=== PATIENT | female | born 1965 | race Hispanic/Latino ===

== ENCOUNTER 2020-02-09 14:03 | Inpatient (IN) | payer OTHER ==
[~2020-02-09 14:03] MED LIST: Iopamidol-370 76% 500 ML 1 ML ONE
[2020-02-09 14:52] LABS: #Lymphocytes 1.8 thou/uL (1.20-3.40); #Monocytes 0.4 thou/uL (0.11-0.59); #Neutrophils 3.5 thou/uL (1.40-6.50); %Basophils 0.8 % (0.0-1.0); %Eosinophils 0.4 % (0.0-10.0); %Lymphocytes 31.9 % (21.0-51.0); %Neutrophils 59.9 % (42.0-75.0); Hemoglobin 13.3 g/dL (12.0-16.0); Mean Corpuscular HGB CONC 33.3 g/dL (32.0-36.0); Mean Corpuscular Hemoglobin 30.9 pg (27.0-31.0); Mean Corpuscular Volume 92.6 fL (78.0-98.0); Mean Platelet Volume 7.4 fL (7.4-10.4); Platelet Count 221 thou/uL (130-400); RBC Distribution Width 13.9 % (11.5-14.5); Red Blood Cell (RBC) Count 4.32 mill/uL (4.20-5.40); White Blood Cell (WBC) Count 5.8 thou/uL (4.8-10.8)
--- NOTE | 2020-02-09 14:52 | RAD ---
PORTABLE CHEST: 02/09/20 HISTORY: Chest pain. Lungs appear clear. No infiltrate identified. Relatively poor inspiration limits the study. IMPRESSION: No acute process. POS: AGW
[2020-02-09 15:06] LABS: ALT (SGPT) 26 U/L (8-55); AST (SGOT) 23 U/L (5-34); Albumin 3.8 g/dL (3.5-5.0); Alkaline Phosphatase 74 U/L (40-110); Anion Gap 10 mmol/L (10-20); BUN (Urea Nitrogen) 18 mg/dL (9.8-20.1); Bilirubin, Total 0.4 mg/dL (0.2-1.2); Calc. Creatinine Clearance 0 mL/min (70-130); Calcium 8.6 mg/dL (7.8-10.44); Carbon Dioxide 25 mmol/L (22-29); Chloride 105 mmol/L (98-107); Estimated GFR-MDRD 76; Globulin 2.3 g/dL (2.4-3.5); Glucose 87 mg/dL (70-105); Potassium 4.3 mmol/L (3.5-5.1); Protein, Total 6.1 g/dL (6.0-8.3); Sodium 136 mmol/L (136-145)
[2020-02-09] MEDS ORDERED: Ondansetron PF 4 MG/2 ML Vial ONE (15:36)
[2020-02-09] MEDS ORDERED: hydrALAZINE 20 MG/ML VIAL SLOW IVP PRN (15:37)
[2020-02-09] MEDS ORDERED: Senokot S 8.6-50 MG TAB PO PRN (15:37)
[2020-02-09] MEDS ORDERED: Guaifenesin DM 100-10/5 ML UDCUP PO PRN (15:37)
[2020-02-09] MEDS ORDERED: Acetaminophen 325 MG TAB PO PRN ×2 (15:37)
[2020-02-09] MEDS ORDERED: Labetalol HCl 100 MG/20 ML VIAL SLOW IVP PRN (15:37)
[2020-02-09] MEDS ORDERED: niCARdipine 25 MG in Sodium Chloride 0.9% 250 ML 240 ML IVPB PRN (15:37)
[2020-02-09] MEDS ORDERED: Calcium Carbonate 500 MG ChewTAB PO PRN (15:37)
[2020-02-09] MEDS ORDERED: Ondansetron PF 4 MG/2 ML Vial IVP PRN (15:37)
[2020-02-09] MEDS ORDERED: Bisacodyl 10 MG SUPP PR PRN (15:37)
[2020-02-09] MEDS ORDERED: Milk Of Magnesia 30 ML UDCUP PO PRN (15:37)
--- NOTE | 2020-02-09 15:37 | CT ---
CT HEAD WITHOUT CONTRAST: 02/09/20 INDICATIONS: Left sided weakness. Stroke protocol. COMPARISON: 09/18/09 The ventricles have normal size and position. There is no evidence of intracranial hemorrhage or mass . There is no evidence of edema or infarct. Sinuses are clear. IMPRESSION: No acute abnormality. Findings relayed to Dr. Goddard at 2:37 p.m. POS: AGW
--- NOTE | 2020-02-09 15:46 | CT ---
CTA HEAD: CTA NECK: 02/09/20 Axial tomograms obtained through the head and neck with IV enhancement following angio protocol with multiplanar reconstruction and 3D postprocessing. INDICATIONS: Stroke protocol. Left side weakness. CTA HEAD: The intracranial internal carotid arteries are patent. The cavernous ICAs appear patent and symmetric . Anterior cerebral arteries are patent. Both middle cerebral arteries are patent. The basilar artery is patent. Posterior cerebral arteries are both patent and symmetric. The dural venous sinuses appear patent. IMPRESSION: Unremarkable CTA head. CTA NECK: Normal origin of the arch vessels. Both common carotid arteries are patent and symmetric. No significant atherosclerotic change seen at either bulb. The extracranial internal carotid arteries are patent and symmetric. No stenosis. Vertebral arteries are patent and symmetric. No soft tissue abnormality identified. IMPRESSION: Unremarkable CTA neck. POS: AGW
[2020-02-09] MEDS ORDERED: Acetaminophen 500 MG TAB ONE ×2 (15:52→22:18)
--- NOTE | 2020-02-09 16:19 | HP ---
REASON FOR ADMISSION: The patient is status post tPA for left-sided weakness. HISTORY OF PRESENTING ILLNESS: Please note majority of this history is obtained by talking to Dr. Goddard in the ER. The patient apparently was brought to emergency room as she was having left-sided weakness noticed by her . She had an NIH of 8. The patient was in the window for tPA. Her gave consent for tPA. The patient talks a few words and sentences. She is oriented. She tries to follow verbal stimuli, but resists moving left side. The patient is also seen moving her left upper extremity, and she is able to flex her elbow to 30 degrees, is able to move her fingers when not asked. She is holding her left lower extremity in extension. The patient also complains of left-sided chest pain. No shortness of breath; cough; COVID symptoms including fever, generalized body aches, altered taste sensation; or prior history of stroke. Has no complaints of urinary frequency or urgency. No fever. No cough or expectoration. PAST MEDICAL AND SURGICAL HISTORY: Has had some surgery done on her ovary. CURRENT MEDICATIONS: None. ALLERGIES: ALLERGIC TO PENICILLIN. PERSONAL HISTORY: Does not abuse alcohol or drugs. No history of smoking. 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 FAMILY HISTORY: Mother at the age of 84. She had massive [place], and she also had cancer. Father is still living. REVIEW OF SYSTEMS: CONSTITUTIONAL: Negative for weight loss or gain, ability to conduct usual activities. SKIN: Negative for rash, itching. EYES: Negative for double vision, pain. ENT/MOUTH: Negative for nose bleeding, neck stiffness, pain, tenderness. CARDIOVASCULAR: Negative for palpitations, dyspnea on exertion, orthopnea. RESPIRATORY: Negative for shortness of breath, wheezing, cough, hemoptysis, fever or night sweats. GASTROINTESTINAL: Negative for poor appetite, abdominal pain, heartburn, nausea, vomiting, constipation, or diarrhea. GENITOURINARY: Negative for urgency, frequency, dysuria, nocturia. MUSCULOSKELETAL: Negative for pain, swelling. NEUROLOGIC/PSYCHIATRIC: Negative for anxiety, depression. ALLERGY/IMMUNOLOGIC: Negative for skin rash, bleeding tendency. PHYSICAL EXAMINATION: GENERAL: The patient is a 54-year-old female, who is currently not in any acute distress. VITAL SIGNS: Blood pressure 136/90, pulse 86 per minute, respiratory rate 20 per minute, temperature 99.1 degrees Fahrenheit, saturating 98% on room air. NECK: Supple. No elevated JVD. HEENT: Eyes: Extraocular muscles intact. Pupils reacting to light. Oral cavity: Mucous membranes are dry. No exudates or congestion. CARDIOVASCULAR SYSTEM: S1, S2 heard. Regular rhythm. RESPIRATORY SYSTEM: Air entry 2+ bilateral. No rales or rhonchi. ABDOMEN: Soft. Bowel sounds heard. No tenderness, rigidity, or guarding. EXTREMITIES: No peripheral edema or calf tenderness. VASCULAR SYSTEM: Peripheral pulses 2+ bilateral. No ischemic ulcerations or gangrene. CENTRAL NERVOUS SYSTEM: Cranial nerves are grossly intact. There is mild drooping seen on the right face occasionally. When the patient is asked to protrude her tongue, she tries to keep it inside her mouth and angled to the left. No gross cranial nerve deficits seen. Motor system: Accurate examination of motor system is difficult. The patient seems to have voluntary withholding of her left side of her body. Her tone is normal. Reflexes are 2+ bilateral. The patient refuses to move her left upper and lower extremities. 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 Right upper and lower extremity strength is 5/5. Cerebellar signs cannot be elicited as the patient refuses to move her left side. Her gait was not tested. PSYCHIATRIC SYSTEM: The patient is a bit anxious, otherwise no hallucinations or delusions. LABORATORY DATA: White count of 5.8, H and H of 13 and 39, platelet count 221 with 59% neutrophils, 31% lymphocytes. Electrolytes stable. BUN 18, creatinine 0.7, serum bicarb 25. Liver enzymes are within normal limits. Troponin I x1 is negative. BNP less than 10. Albumin 3.8. CT brain without contrast done shows no acute abnormality. A CT angio of the brain, official results are pending. Per Dr. Goddard, it was within normal limits. EKG done shows normal sinus rhythm at 77 beats per minute. No gross ST-T wave changes. CLINICAL IMPRESSION AND PLAN: The patient will be admitted to ICU post tPA for left-sided weakness. We will start her on aspirin from tomorrow. The patient has no major medical or surgical history in the past. We will obtain lipid profile in the morning. We will place her on Lipitor, Pepcid. We will obtain echo with 2D Doppler for left ventricular function and an MRI after she finishes 24 hours of post tPA protocol in ICU. We will obtain a COVID-19 PCR. She does not have any symptoms related to COVID at present. She will be on clear liquid diet. We will obtain complete stroke protocol including PT, OT, and Speech Therapy evaluations. Neuro checks will be done as well. I have discussed her findings with Dr. Agarwal who will consult on her. Job ID: [id number] MTDD
[2020-02-09] MEDS ORDERED: Famotidine 20 MG TAB ONE (22:18)
[2020-02-10] MEDS: Sodium Chloride 0.9% 1,000 ML IV SCH ×3 (00:34→19:15)
[2020-02-10] MEDS: Atorvastatin Calcium 40 MG TAB PO SCH ×2 (00:43→21:46)
[2020-02-10] MEDS: Communication Order-Pharmacy FS SCH ×2 (00:43→18:52)
[2020-02-10] MEDS: Famotidine 20 MG TAB PO SCH ×3 (00:44→21:46)
[2020-02-10] MEDS ORDERED: HYDROcodone/Acetaminophen 5/325 mg Tablet ONE (07:26)
[2020-02-10] MEDS: HYDROcodone/Acetaminophen 5/325 mg Tablet PO PRN ×2 (07:30→15:15)
--- NOTE | 2020-02-10 09:17 | CT ---
CT BRAIN WITHOUT CONTRAST: Date: 02/10/2020 HISTORY: CVA, left-sided weakness, status post TPA. FINDINGS: Correlation is made with the previous day's exam. No evidence of acute infarct, hemorrhage, midline shift, or abnormal extra-axial fluid collections ar e seen. The ventricular size is normal and the basilar cisterns are patent. The bony calvarium is int act. The visualized paranasal sinuses are clear. IMPRESSION: No CT evidence of acute intracranial process. POS: AH
[2020-02-10] MEDS ORDERED: Famotidine 20 MG TAB ONE (09:56)
[2020-02-10] MEDS ORDERED: Lorazepam 2 MG/ML VIAL SLOW IVP SCH (11:00)
[2020-02-10 12:04] LABS: SARS-CoV-2 by NAA DETECTED (NotDetected)
[2020-02-10 12:05] LABS: SARS-CoV-2 MS2 Positive; SARS-CoV-2 N Gene Negative; SARS-CoV-2 S Gene Positive; SARS-CoV-2 orf1ab Positive
--- NOTE | 2020-02-10 13:41 | CON ---
NEUROLOGY CONSULTATION DATE OF CONSULTATION: 02/10/2020 REASON FOR CONSULTATION: Left-sided weakness, status post tPA. HISTORY OF PRESENT ILLNESS: Ms. Parra is a 54-year-old female with history significant for acute onset left-sided weakness, was brought by for stroke evaluation. The patient had NIH of 8 and she was in the window for tPA, so the gave consent for tPA and tPA was given to the patient yesterday evening. Per , she has acute onset left upper and lower extremity weakness with problems with speech. The patient also complained of left-sided chest pain, but denies shortness of breath, nausea, vomiting, abdominal pain, dizziness, problems with blurred vision, loss of vision, or loss of consciousness, abnormal involuntary movements associated with this episode. REVIEW OF SYSTEMS: All 14 systems were reviewed and were negative except the pertinent positives mentioned in the HPI. PAST MEDICAL HISTORY: Not significant. PAST SURGICAL HISTORY: Ovarian surgery. CURRENT MEDICATIONS: None. ALLERGIES: PENICILLIN. PERSONAL HISTORY: The patient denies smoking, alcohol, illegal drug use. 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 FAMILY HISTORY: History of coronary artery disease and cancer. Vital Signs & Weight: Vital Signs (12 hours) Temp 02/10/20 11:37 98.0 F Weight Weight 127 lb 6.835 oz Accuchecks 02/09/20 14:34 POC Glucose 92 Active Medications Generic Name Dose Route Start Last Admin Trade Name Freq PRN Reason Stop Dose Admin Hydrocodone Bitart/Acetaminophen 1 tab 02/09/20 15:37 02/10/20 07:30 Hydrocodone/Acetaminophen 5/325 Mg Tablet PO 1 tab Q4H PRN Administration Moderate Pain (4-6) Atorvastatin Calcium 40 mg 02/09/20 21:00 02/10/20 00:43 Atorvastatin Calcium 40 Mg Tab PO Not Given HS LIBERTY Famotidine 20 mg 02/09/20 21:00 02/10/20 09:55 Famotidine 20 Mg Tab PO 20 mg BID LIBERTY Administration Sodium Chloride 1,000 mls @ 80 mls/hr 02/09/20 15:45 02/10/20 06:33 Normal Saline 0.9% IV 1,000 mls .[id number] LIBERTY Administration Miscellaneous Information 1 each 02/09/20 16:00 02/10/20 00:43 Communication Order-Pharmacy FS 02/10/20 16:00 1 each NOW LIBERTY Administration PHYSICAL EXAMINATION: . General Appearance: awake alert Eye: anicteric sclera ENT: no oropharyngeal lesions, dry oral mucosa Neck: supple, no JVD Heart: RRR, no murmur Respiratory: no wheezes, no rales Gastrointestinal: soft, non-tender, non-distended, normal bowel sounds Extremities: no cyanosis, no edema Neurological - Mental status, the patient is alert and oriented X3. Motor, left hemiparesis. Cerebellar: did not cooperate with the testing. Cranial nerves 2 through 12 intact except mild right facial droop. Sensory: withdraws to nailbed pressure left < right. Gait deferred due to the patient's safety reasons. DATA REVIEWED: I reviewed the CT scan of the brain, which was negative for acute intracranial pathology. Labs were essentially unremarkable. COVID Positive. ASSESSMENT AND PLAN: (1) Acute CVA (cerebrovascular accident) Code(s): I63.9 - CEREBRAL INFARCTION, UNSPECIFIED Status: Suspected (2) s/p tPA Status: Acute (3) COVID-19 virus detected Code(s): U07.1 - COVID-19 Status: Acute (4) Anxiety disorder Code(s): F41.9 - ANXIETY DISORDER, UNSPECIFIED Status: Acute Qualifiers: Anxiety disorder type: generalized anxiety disorder Qualified Code(s): F41.1 - Generalized anxiety disorder Ms. Joyce Parra is a 54-year-old female, who presented with acute onset left-sided weakness and she was given tPA. Neuro checks every [address] 24 hours after symptom onset. If negative, then start aspirin and high-intensity statin for secondary stroke prevention. Permissive control of blood pressure at this time. Strict control of blood glucose. Check hemoglobin A1c, fasting lipid panel, and TSH. She needs 2D echo to evaluate for left ventricular ejection fraction and carotid Dopplers. The patient is COVID positive, so we will check the inflammatory markers and thrombosis panel. She needs MRI brain to assess for acute intracranial process. N.p.o. until cleared by Speech. PT/OT/Speech. DVT prophylaxis with SCDs. Continue medical management per primary team. We will continue to follow. Thank you for the consult. Job ID: [id number] MTDD
--- NOTE | 2020-02-10 14:27 | PDOC.HOSPP ---
- Subjective Encounter Date: 02/10/20 Encounter Time: 10:20 Subjective: still has significant weakness on left side, but moves it can raise her left UE upto her shoulder level, left leg atleast 40 degrees speech is more fluent today no cough or sob feels weak, no other specific complaints has passed urine, no stool yet no headache, nausea or vomiting is tolerating liq diet so far at bedside - Objective Vital Signs & Weight: Vital Signs (12 hours) Temp 02/10/20 11:37 98.0 F Weight Weight 127 lb 6.835 oz Result Diagrams: 02/09/20 14:40 02/09/20 14:40 Additional Labs: Accuchecks 02/09/20 14:34 POC Glucose 92 Hospitalist ROS - Medication Medications: Active Medications Generic Name Dose Route Start Last Admin Trade Name Freq PRN Reason Stop Dose Admin Hydrocodone Bitart/Acetaminophen 1 tab 02/09/20 15:37 02/10/20 07:30 Hydrocodone/Acetaminophen 5/325 Mg Tablet PO 1 tab Q4H PRN Administration Moderate Pain (4-6) Atorvastatin Calcium 40 mg 02/09/20 21:00 02/10/20 00:43 Atorvastatin Calcium 40 Mg Tab PO Not Given HS LIBERTY Famotidine 20 mg 02/09/20 21:00 02/10/20 09:55 Famotidine 20 Mg Tab PO 20 mg BID LIBERTY Administration Sodium Chloride 1,000 mls @ 80 mls/hr 02/09/20 15:45 02/10/20 06:33 Normal Saline 0.9% IV 1,000 mls .[id number] LIBERTY Administration Miscellaneous Information 1 each 02/09/20 16:00 02/10/20 00:43 Communication Order-Pharmacy FS 02/10/20 16:00 1 each NOW LIBERTY Administration - Exam General Appearance: awake alert Eye: anicteric sclera ENT: no oropharyngeal lesions, dry oral mucosa Neck: supple, no JVD Heart: RRR, no murmur Respiratory: no wheezes, no rales Gastrointestinal: soft, non-tender, non-distended, normal bowel sounds Extremities: no cyanosis, no edema Neurological - other findings: left hemiparesis, possible aphasia Psychiatric: A&O x 3 Psychiatric - other findings: anxious++ Hosp A/P (1) Acute CVA (cerebrovascular accident) Code(s): I63.9 - CEREBRAL INFARCTION, UNSPECIFIED Status: Suspected (2) s/p tPA Status: Acute (3) COVID-19 virus detected Code(s): U07.1 - COVID-19 Status: Acute (4) Anxiety disorder Code(s): F41.9 - ANXIETY DISORDER, UNSPECIFIED Status: Acute Qualifiers: Anxiety disorder type: generalized anxiety disorder Qualified Code(s): F41.1 - Generalized anxiety disorder - Plan her covid 19 pcr came back +ve around 1 pm today, has no resp symptoms unclear if her neurologic issues are related to covid Consult may be a candidate for remdesivir, will start steroids, aspirin she got tPA yesterday, unclear if she is a candidate for ongoing lovenox in view of covid +ve status with residual neurologic issues d/w patient and at bedside await MRI, repeat CT brain 24hr protocol post tPA is -ve for any ac cva. echo shows no abnormality thrombosis profile, lindsey with reflex, ferritin, crp, ldh are pending at present initially her neurologic symptoms were thought to be conversion disorder yesterday, but her covid 19 pcr is +ve now and its unclear if these are related to it. She denied having any known contacts with covid yesterday, likely she got it from her elementary school?
--- NOTE | 2020-02-10 17:32 | RAD ---
Left foot 3 views HISTORY: Pain and numbness. FINDINGS: Lisfranc joint alignment is anatomic. Plantar arch is maintained. No acute fracture, dislocation, or aggressive osseous erosions. IMPRESSION : No abnormalities are demonstrated.
--- NOTE | 2020-02-10 17:33 | RAD ---
Chest one view HISTORY: COVID pneumonia. COMPARISON: 02/09/2020. FINDINGS: Cardiac silhouette is magnified by projection. Shallow inspiration accentuates pulmonary ma rkings. Mediastinum is midline. No lobar consolidation or evidence of pneumothorax. IMPRESSION : No abnormalities are demonstrated.
--- NOTE | 2020-02-10 17:35 | RAD ---
Left shoulder 3 views HISTORY: Pain. FINDINGS: Acromioclavicular and glenohumeral alignment are maintained. No acute fracture, dislocation , or aggressive osseous erosions. IMPRESSION : No abnormalities are demonstrated.
[2020-02-10 17:38] LABS: #Basophils 0.1 thou/uL (0.0-0.2); #Lymphocytes 2.2 thou/uL (1.20-3.40); #Monocytes 0.4 thou/uL (0.11-0.59); #Neutrophils 2.4 thou/uL (1.40-6.50); %Basophils 1.3 % (0.0-1.0); %Eosinophils 0.8 % (0.0-10.0); %Lymphocytes 43.1 % (21.0-51.0); %Monocytes 8.2 % (0.0-10.0); %Neutrophils 46.7 % (42.0-75.0); Hemoglobin 13.6 g/dL (12.0-16.0); Mean Corpuscular HGB CONC 33.3 g/dL (32.0-36.0); Mean Corpuscular Hemoglobin 30.7 pg (27.0-31.0); Mean Corpuscular Volume 92.4 fL (78.0-98.0); Mean Platelet Volume 7.5 fL (7.4-10.4); Platelet Count 202 thou/uL (130-400); RBC Distribution Width 13.9 % (11.5-14.5); Red Blood Cell (RBC) Count 4.43 mill/uL (4.20-5.40); White Blood Cell (WBC) Count 5.1 thou/uL (4.8-10.8)
--- NOTE | 2020-02-10 17:41 | RAD ---
XR Knee Lt 4 View STANDARD History: Pain and numbness Comparison: None. Findings: No acute displaced fracture or malalignment. Mild lateral knee joint soft tissue swelling. Impression: Mild lateral soft tissue swelling without acute displaced fracture or malalignment.
[2020-02-10 17:57] LABS: ALT (SGPT) 21 U/L (8-55); AST (SGOT) 22 U/L (5-34); Albumin 3.7 g/dL (3.5-5.0); Alkaline Phosphatase 73 U/L (40-110); Anion Gap 7 mmol/L (10-20); BUN (Urea Nitrogen) 11 mg/dL (9.8-20.1); Bilirubin, Total 0.5 mg/dL (0.2-1.2); Calc. Creatinine Clearance 81 mL/min (70-130); Calcium 8.5 mg/dL (7.8-10.44); Carbon Dioxide 25 mmol/L (22-29); Cardiac Risk 4.3 (Less than 4.5); Chloride 112 mmol/L (98-107); Cholesterol 171 mg/dl (< 200 Desired); Estimated GFR-MDRD 85; Globulin 2.6 g/dL (2.4-3.5); Glucose 74 mg/dL (70-105); HDL Cholesterol 40 mg/dL (>60 Neg Risk); LDL Cholesterol, Calculated 110 mg/dL; Protein, Total 6.3 g/dL (6.0-8.3); Sodium 140 mmol/L (136-145); Triglycerides 103 mg/dL (Less than 150)
[2020-02-10 18:17] LABS: Prothrombin Time 13.8 sec (12.0-14.7)
[2020-02-10 18:18] LABS: PTT 33.4 sec (22.9-36.1)
[2020-02-10 18:19] LABS: D-Dimer Test 0.71 *mcg/mL (0.27-0.43)
[2020-02-10 18:46] VITALS: BMI 27.2
--- NOTE | 2020-02-10 22:35 | CON ---
DATE OF CONSULTATION: 02/10/2020 REASON FOR CONSULTATION: COVID infection and possible CVA versus alternate diagnosis. 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 She felt unwell and fell down on her left side and was brought by EMS. She was tearful and shaky and anxious, and had some difficulty breathing, and the history and exam were difficult, but she ended up having an extensive evaluation for CVA, which was negative including CT angiogram. It looks like she did receive fibrinolytic agent in the emergency room. Now, she is in the IM. She is awake and able to have a conversation, answers questions, having quite a bit of pain in the left shoulder and the left knee that hinders her movements. She was seen by neurologist, Dr. Agarwal, and her assessment was acute CVA, status post tPA, and recommended neuro checks every [address] 24 hours after symptom onset. She had some headaches earlier, but not any more. No visual symptoms, sore throat, odynophagia, or dysphagia. No cough or sputum production. No chest pain. No abdominal pain or diarrhea. No genitourinary symptoms. MEDICAL HISTORY: Some sort of surgery of the ovarian structure, had not been taking any medication. MEDICATIONS: At the moment, she is on Decadron, hydralazine, labetalol, ondansetron. ALLERGIES: PENICILLIN. SOCIAL HISTORY: . 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 FAMILY HISTORY: Coronary artery disease and cancer. PHYSICAL EXAMINATION: VITAL SIGNS: She has been afebrile. O2 sats were 98% on room air. SKIN: Normal except for an area of bruising in the anterior aspect of the left knee. LYMPH NODES: No lymphadenopathy. HEENT: Ocular movements conjugate. Oral cavity normal. Teeth normal. NECK: Supple. LUNGS: Symmetric. Clear breath sounds. HEART: S1 and S2. Regular rate. No S3 or S4. She has quite a bit of tenderness in the left shoulder and tenderness in the left knee. ABDOMEN: Soft, not distended or tender. No ascites. No bladder distention. EXTREMITIES: No edema. Pulses are 1+ in dorsalis pedis. Moves all extremities equally. NEUROLOGICAL: Cognitive function appears to be intact. She has difficulty moving the left upper and lower extremities, but she is able to move the feet and the hands equally almost. The client support professional is pretty good. Looks like, this movement issue is more related to pain in the shoulder and knee than actual weakness, but I am not sure. Dr. Agarwal's exam is described, and she finds a left hemiparesis. DIAGNOSTIC STUDIES: Chest x-ray was normal, and echocardiogram was not remarkable. Brain CT was normal. CT of [place], angio with contrast was normal. ASSESSMENT: No significant past medical history, now with general malaise and then fall, possible syncopal event, not clear what happened, and she hit this left side of her body. She has a contusion to the left shoulder and left knee with bruising, and she has quite a bit of pain when she mobilizes the extremities, so it is possible that this weakness is more related to the antalgic posturing related to the pain in the shoulder and knee respectively. Coronavirus disease process is mild. I do not think she needs Decadron. We can go ahead and discontinue, and just monitor her. The only reason to keep her in the hospital is for the possible neurological event, and Dr. Agarwal has given instructions as to, in the next few days, what to do, and once that is completed and she can be discharged to be in quarantine, finish the coronavirus disease precautions during the first 10 days. After 10 days, she can be released from quarantine. The duration of illness now is approximately 3 or 4 days. To be on the safe side, another 10 days should be enough to keep her in quarantine after she is released from her central nervous system process. Job ID: [id number]
[2020-02-11] MEDS: Sodium Chloride 0.9% 1,000 ML IV SCH (08:18)
[2020-02-11] MEDS ORDERED: FLU VACC QS2020-21(6MOS UP)/PF 60 MCG/0.5 ML SYRINGE IM ONE (09:00)
[2020-02-11] MEDS ORDERED: Dexamethasone 10 MG/ML VIAL SLOW IVP SCH (09:00)
[2020-02-11] MEDS: HYDROcodone/Acetaminophen 5/325 mg Tablet PO PRN ×2 (09:18→17:56)
[2020-02-11] MEDS: Famotidine 20 MG TAB PO SCH ×2 (09:18→20:20)
[2020-02-11 10:56] LABS: SARS-CoV-2 IgG Ab Non-Reactive (NonReactive); SARS-CoV-2 IgG Index 0.01 S/CO (< 1.40)
--- NOTE | 2020-02-11 13:23 | PDOC.HOSPP ---
- Subjective Encounter Date: 02/11/20 Encounter Time: 11:15 Subjective: still c/o weakness in her left side, she can move them but says it hurts to move no cough, sob or chest dyscomfort - Objective Vital Signs & Weight: Vital Signs (12 hours) Temp Pulse Resp BP Pulse Ox 02/11/20 10:00 97.6 F 82 16 151/86 H 99 02/11/20 07:57 98 02/11/20 06:02 97 F L 02/11/20 01:37 99.5 F Weight Admit Weight 149 lb Weight 149 lb Most Recent Monitor Data Heart Rate from ECG 60 NIBP 146/105 NIBP BP-Mean 118 Respiration from ECG 14 SpO2 97 I&O: 02/10/20 02/11/20 02/12/20 06:59 06:59 06:59 Intake Total 1860 Output Total 3150 Balance -1290 Result Diagrams: 02/10/20 17:27 02/10/20 17:27 Hospitalist ROS - Medication Medications: Active Medications Generic Name Dose Route Start Last Admin Trade Name Freq PRN Reason Stop Dose Admin Hydrocodone Bitart/Acetaminophen 1 tab 02/09/20 15:37 02/11/20 09:18 Hydrocodone/Acetaminophen 5/325 Mg Tablet PO 1 tab Q4H PRN Administration Moderate Pain (4-6) Atorvastatin Calcium 40 mg 02/09/20 21:00 02/10/20 21:46 Atorvastatin Calcium 40 Mg Tab PO 40 mg HS LIBERTY Administration Famotidine 20 mg 02/09/20 21:00 02/11/20 09:18 Famotidine 20 Mg Tab PO 20 mg BID LIBERTY Administration Ondansetron HCl 4 mg 02/09/20 15:37 02/11/20 09:19 Ondansetron Pf 4 Mg/2 Ml Vial IVP 4 mg Q6H PRN Administration Nausea/Vomiting - Exam General Appearance: awake alert Eye: PERRL, anicteric sclera ENT: no oropharyngeal lesions, moist mucosa Neck: supple, no JVD Heart: RRR, no murmur Respiratory: no wheezes, no rales, no ronchi Gastrointestinal: soft, non-tender, non-distended, normal bowel sounds Extremities: no cyanosis, no edema Neurological: cranial nerve grossly intact, no focal deficits Psychiatric: A&O x 3 Hosp A/P (1) Conversion disorder Code(s): F44.9 - DISSOCIATIVE AND CONVERSION DISORDER, UNSPECIFIED Status: Suspected (2) Acute CVA (cerebrovascular accident) Code(s): I63.9 - CEREBRAL INFARCTION, UNSPECIFIED Status: Suspected (3) s/p tPA Status: Acute (4) COVID-19 virus detected Code(s): U07.1 - COVID-19 Status: Acute (5) Anxiety disorder Code(s): F41.9 - ANXIETY DISORDER, UNSPECIFIED Status: Acute Qualifiers: Anxiety disorder type: generalized anxiety disorder Qualified Code(s): F41.1 - Generalized anxiety disorder - Plan covid 19 is +ve but has no symptoms except for myalgias unclear if her neurologic issues are related to covid/ suspect conversion disorder oral aspirin, xanax for extreme anxiety and citalopram she got tPA 02/09 due to suspected left hemiparesis await MRI, repeat CT brain 24hr protocol post tPA is -ve for any ac cva. echo shows no abnormality thrombosis profile, lindsey with reflex, ferritin, crp, ldh levels She denied having any known contacts with thanhid yesterday, likely she got it from her elementary school? tx to stroke unit PT/OT to mobilize as tolerated multiple xrays of left side joints show no fractures, no echymosis or suspicion of bleed (tPA) in those sites.
[2020-02-11] MEDS ORDERED: Lorazepam 2 MG/ML VIAL SLOW IVP SCH (17:45)
[2020-02-11] MEDS: Atorvastatin Calcium 40 MG TAB PO SCH (20:20)
[2020-02-11] MEDS: ALPRAZolam 0.25 MG TAB PO SCH (20:21)
[2020-02-11] MEDS ORDERED: Doxepin HCl 25 MG CAP PO SCH (21:00)
[2020-02-12] MEDS: Famotidine 20 MG TAB PO SCH ×2 (10:14→20:22)
[2020-02-12] MEDS: Citalopram 20 MG TAB PO SCH ×2 (10:15→10:44)
[2020-02-12] MEDS: HYDROcodone/Acetaminophen 5/325 mg Tablet PO PRN (10:15)
[2020-02-12] MEDS: ALPRAZolam 0.25 MG TAB PO SCH ×3 (10:15→20:22)
--- NOTE | 2020-02-12 11:41 | PDOC.HOSPP ---
- Subjective Encounter Date: 02/12/20 Encounter Time: 11:00 Subjective: no new weakness will have MRI later today for brain no cough or fever - Objective Vital Signs & Weight: Vital Signs (12 hours) Temp Pulse Resp BP Pulse Ox 02/12/20 07:58 98.1 F 64 14 117/56 L 95 02/12/20 07:57 93 L 02/12/20 04:00 97.6 F 78 18 113/63 93 L 02/12/20 00:10 97 02/12/20 00:00 97.5 F L 73 20 102/53 L 96 Weight Admit Weight 149 lb Weight 149 lb Most Recent Monitor Data Heart Rate from ECG 70 NIBP 134/104 NIBP BP-Mean 114 Respiration from ECG 25 SpO2 100 I&O: 02/11/20 02/12/20 02/13/20 06:59 06:59 06:59 Intake Total 1860 Output Total 3150 Balance -1290 Result Diagrams: 02/10/20 17:27 02/10/20 17:27 Hospitalist ROS - Medication Medications: Active Medications Generic Name Dose Route Start Last Admin Trade Name Freq PRN Reason Stop Dose Admin Acetaminophen 650 mg 02/09/20 15:37 02/11/20 14:48 Acetaminophen 325 Mg Tab PO 650 mg Q4H PRN Administration Headache/Fever/Mild Pain (1-3) Hydrocodone Bitart/Acetaminophen 1 tab 02/09/20 15:37 02/11/20 17:56 Hydrocodone/Acetaminophen 5/325 Mg Tablet PO 1 tab Q4H PRN Administration Moderate Pain (4-6) Alprazolam 0.25 mg 02/11/20 21:00 02/12/20 10:42 Alprazolam 0.25 Mg Tab PO Not Given BID LIBERTY Atorvastatin Calcium 40 mg 02/09/20 21:00 02/11/20 20:20 Atorvastatin Calcium 40 Mg Tab PO 40 mg HS LIBERTY Administration Calcium Carbonate 1,000 mg 02/09/20 15:37 02/11/20 14:48 Calcium Carbonate 500 Mg Chewtab PO 1,000 mg Q4H PRN Administration Heartburn or Indigestion Citalopram Hydrobromide 20 mg 02/12/20 09:00 02/12/20 10:44 Citalopram 20 Mg Tab PO Not Given DAILY LIBERTY Famotidine 20 mg 02/09/20 21:00 02/12/20 10:14 Famotidine 20 Mg Tab PO 20 mg BID LIBERTY Administration Ondansetron HCl 4 mg 02/09/20 15:37 02/11/20 09:19 Ondansetron Pf 4 Mg/2 Ml Vial IVP 4 mg Q6H PRN Administration Nausea/Vomiting - Exam General Appearance: awake alert Eye: PERRL, anicteric sclera ENT: no oropharyngeal lesions, moist mucosa Neck: supple, no JVD Heart: RRR, no murmur Respiratory: no wheezes, no rales Gastrointestinal: soft, non-tender, non-distended, normal bowel sounds Extremities: no cyanosis, no edema Neurological: cranial nerve grossly intact, no focal deficits Psychiatric: A&O x 3 Hosp A/P (1) Acute CVA (cerebrovascular accident) Code(s): I63.9 - CEREBRAL INFARCTION, UNSPECIFIED Status: Suspected (2) s/p tPA Status: Acute (3) COVID-19 virus detected Code(s): U07.1 - COVID-19 Status: Acute (4) Anxiety disorder Code(s): F41.9 - ANXIETY DISORDER, UNSPECIFIED Status: Acute Qualifiers: Anxiety disorder type: generalized anxiety disorder Qualified Code(s): F41.1 - Generalized anxiety disorder (5) Conversion disorder Code(s): F44.9 - DISSOCIATIVE AND CONVERSION DISORDER, UNSPECIFIED Status: Suspected - Plan covid 19 is +ve but has no symptoms except for myalgias unclear if her neurologic issues are related to covid/ suspect conversion disorder oral aspirin, started on xanax for extreme anxiety and citalopram she got tPA 02/09 due to suspected left hemiparesis in ER on arrival. await MRI, repeat CT brain 24hr protocol post tPA is -ve for any ac cva. echo shows no abnormality thrombosis profile, lindsey with reflex, ferritin, crp, ldh levels She denied having any known contacts with covid yesterday, likely she got it from her elementary school? PT/OT to mobilize as tolerated multiple xrays of left side joints show no fractures, no echymosis or suspicion of bleed (tPA) in those sites.
[2020-02-12] MEDS: Atorvastatin Calcium 40 MG TAB PO SCH (20:22)
[2020-02-13] MEDS ORDERED: Enoxaparin Sodium 40 MG/0.4 ML SYRINGE SC SCH (09:00)
[2020-02-13] MEDS: ALPRAZolam 0.25 MG TAB PO SCH ×3 (09:27→12:45)
[2020-02-13] MEDS: Famotidine 20 MG TAB PO SCH (09:27)
[2020-02-13] MEDS: Citalopram 20 MG TAB PO SCH (09:28)
--- NOTE | 2020-02-13 12:21 | CT ---
CT BRAIN WITHOUT CONTRAST: HISTORY: Follow-up CVA, patient was given TPA Comparison 02/10/2020 FINDINGS: Exam is limited due to motion artifact. No definite evidence of acute infarct, hemorrhage, midline shift or abnormal extra-axial fluid collec tions is seen. The ventricular size is appropriate and the basilar cisterns are patent. The bony calvarium is intact. The visualized paranasal sinuses and mastoid air cells are well aerated. IMPRESSION: No definite CT evidence of acute intracranial process.
[2020-02-13 12:53] VITALS: BP 120/98; TEMP 98.6
[2020-02-14 15:02] LABS: ANA Symphony (Qualitative) Negative (Negative); ANA Symphony (Quantitative) 0.2 Ratio (< 0.7 Negative); dsDNA IgG Antibody 0.6 IU/mL (<10 Negative)
[2020-02-14 16:31] LABS: Cardiolipin IgA Ab 2.9 APL-U/mL (<14 Negative); Cardiolipin IgG Ab 0.6 GPL-U/mL (<10 Negative); Cardiolipin IgM Ab 5.4 MPL-U/mL (<10 Negative); EliA APS New Method **** NEW METHOD ****
--- NOTE | 2020-02-14 22:20 | DIS ---
DATE OF ADMISSION: 02/09/2020 DATE OF DISCHARGE: 02/13/2020 DISCHARGE DIAGNOSES: 1. Acute cerebrovascular accident, status post tPA with concern for conversion disorder. 2. COVID-19 infection. 3. Anxiety disorder. HISTORY OF PRESENT ILLNESS: This patient is a 55-year-old female, who apparently had been under some psychosocial stressors, who presented to the emergency department with left-sided weakness along with cough, generalized malaise, left-sided chest pain, who had an NIH of 8 and had concern for possible acute CVA. The patient had a negative head CT and CTA. She subsequently received tPA and was admitted to the hospital. HOSPITAL COURSE: The patient's COVID test did return positive with negative antibodies and she was kept in isolation and was not treated with antiviral medications as she appeared to have normal oxygen saturations. She was seen by Physical Therapy, Occupational Therapy and Speech Therapy and had consultation with Neurology. Subsequent repeat CT scans of the brain on 02/09 and again on 02/12, failed to show any acute pathology. The patient attempted to do an MRI but was unable to tolerate the MRI in spite of some mild sedation, therefore it could not be obtained. Echocardiogram appeared to be generally normal with an EF of 60% to 65%. Images of the left foot, shoulder and knee were all unremarkable. Consultation from ID did not recommend any further aggressive interventions for the COVID, just recommended isolation. Neurology saw the patient as well and ultimately there were some concerns about variability in her exam and lack of significant consistent effort on the exam, and it was felt that the patient might actually be having some degree of conversion disorder related to some anxiety. She was started on benzodiazepine and SSRI. There was no significant early changes but Neurology felt that the patient was stable for discharge to home. I met with the patient and she was eager to discharge to home. She felt strongly that she would be quite functional at home and did not need to pursue any type of followup rehab. She was confident that she would be able to do this and stay isolated at home and was eager to do so. Therefore, she was felt appropriate for discharge to home. PHYSICAL EXAMINATION: VITAL SIGNS: On the day of discharge, temperature 98.6, pulse 84, respirations 18, O2 saturation 95% on room air, BP 120/98 and 135/66. GENERAL: She is awake and alert, pleasant, cooperative. HEART: Regular. LUNGS: Clear. ABDOMEN: Benign. EXTREMITIES: She had fairly symmetric strength on my exam bilaterally. DISPOSITION: The patient is discharged to home. ACTIVITY: As tolerated. DIET: She will be on a heart healthy diet. DISCHARGE MEDICATIONS: She will be on; 1. Aspirin 81 mg daily. 2. Atorvastatin 40 mg at bedtime. FOLLOWUP: She is to follow up with a primary care provider of her choosing and she can return to the hospital at anytime she has the need to do so. TIME SPENT: Time spent in discharge activities was greater than 30 minutes. Job ID: [id number]
[2020-02-15 13:57] LABS: Factor VIII Test 115.8 % ACTIVE (56-157); Protein C Activity 97 % (78-152)
[2020-02-16 07:34] LABS: HEX PHOS LA Tube 1 42.7 SEC; HEX PHOS LA Tube 2 40.6 SEC; Hexagonal Phospholipid Neut 2.1 SEC (0-8.0)
== END 2020-02-13 16:47 | disposition home or self-care (01) | DRG 61 ==
LOC: ERS 14:03 → ERHOLD 16:02 → IMCU/EMU 02-10 11:40 → 2SE 02-11 16:33
PROVIDERS: ADMIT Internal Medicine; ATTEND Internal Medicine
PROC: 3E03317 Introduction of Other Thrombolytic into Peripheral Vein, Percutaneous Approach (ICD-10-PCS; principal; 2020-02-09)
PROC: 8E0ZXY6 Isolation (ICD-10-PCS; 2020-02-09)
DX: I63.9 Cerebral infarction, unspecified (principal); U07.1 COVID-19; G81.94 Hemiplegia, unspecified affecting left nondominant side; R40.2362 Coma scale, best motor response, obeys commands, at arrival to emergency department; R40.2142 Coma scale, eyes open, spontaneous, at arrival to emergency department; R29.708 NIHSS score 8; R40.2242 Coma scale, best verbal response, confused conversation, at arrival to emergency department; Z88.0 Allergy status to penicillin; F44.9 Dissociative and conversion disorder, unspecified; F41.1 Generalized anxiety disorder
CPT/HCPCS: 36415; 36416; 70450; 70496; 70498; 71045; 80053; 80061; 81240; 81241; 82728; 83090; 83615; 83880; 84484; 85025; 85240; 85300; 85303; 85305; 85307; 85379; 85598; 85610; 85730; 86038; 86140; 86147; 86225; 86769; 87635; 93005; 93306; 94760; 96361; 96365; 96374; 96376; 99292; J1650; J2060; J2405; J2997; Q9967; U0003

== ENCOUNTER 2020-02-24 14:19 | Emergency (ER) | payer OTHER | END 2020-02-24 14:37 | disposition home or self-care (01) | LOC: ERS 14:19 | DX: U07.1 COVID-19 (principal) | CPT/HCPCS: 99282 ==